=== PATIENT | female | born 1995 | race African-American/Black ===

== ENCOUNTER 2016-08-26 20:04 | Outpatient (CLI) | payer MEDICAID | END 2016-08-26 21:15 | disposition home or self-care (01) | LOC: MW.OBCHECK 20:04 → MW.OB 20:14 → MW.OBCHECK 21:15 | PROVIDERS: ATTEND Obstetrics & Gynecology | DX: O99.89 Other specified diseases and conditions complicating pregnancy, childbirth and the puerperium (principal); N89.8 Other specified noninflammatory disorders of vagina; O99.712 Diseases of the skin and subcutaneous tissue complicating pregnancy, second trimester; L29.8 Other pruritus; Z3A.26 26 weeks gestation of pregnancy ==

== ENCOUNTER 2017-10-19 08:00 | Inpatient (IN) | payer MEDICAID ==
[2017-10-19] MEDS ORDERED: Nalbuphine 10 MG/1 ML Vial IVPUSH PRN (11:06)
[2017-10-19] MEDS ORDERED: Misoprostol 200 MCG Tab PO PRN (11:06)
[2017-10-19] MEDS ORDERED: Sodium Chloride 0.9% 10 ML Syringe FLUSH PRN (11:06)
[2017-10-19] MEDS ORDERED: Methylergonovine 0.2 MG/1 ML Amp IM PRN (11:06)
[2017-10-19] MEDS ORDERED: Tranexamic Acid 1,000 MG in Sodium Chloride 0.9% 100 ML IV PRN (11:06)
[2017-10-19] MEDS ORDERED: Sodium Chloride 0.9% 2.5 ML Syringe FLUSH PRN (11:06)
[2017-10-19] MEDS ORDERED: Carboprost Tromethamine 250 MCG/1 ML Amp IM PRN (11:06)
[2017-10-19] MEDS ORDERED: Water For Irrigation,Sterile 1,000 ML Container IRR PRN (11:06)
[2017-10-19] MEDS ORDERED: Terbutaline 1 MG/ML SDV SUBCUT PRN (11:06)
[2017-10-19] MEDS ORDERED: Ampicillin 2 GM in Sodium Chloride 0.9% 100 ML IV ONE (11:06)
[2017-10-19] MEDS ORDERED: Misoprostol 25 MCG (1/4 of 100 MCG) Tab PO PRN (11:06)
[2017-10-19] MEDS ORDERED: Misoprostol 25 MCG (1/4 of 100 MCG) Tab VAG PRN (11:06)
[2017-10-19] MEDS ORDERED: Lidocaine 1% 50 ML MDV INJECT PRN (11:06)
[2017-10-19] MEDS ORDERED: Oxytocin/0.9 % Sodium Chloride 30 UNIT/500 ML BAG IV SCH ×2 (11:15→18:00)
[2017-10-19] MEDS: Lactated Ringers 1,000 ML IV SCH ×2 (12:08→18:49)
[2017-10-19] MEDS ORDERED: Ampicillin 1 GM AdvVial IV ONE (16:37)
[2017-10-19] MEDS ORDERED: Sodium Chloride 0.9% 50 ML ONE (16:38)
--- NOTE | 2017-10-19 17:23 | PCM.LDHP ---
L&D History of Present Illness - General Date of Service: 10/19/17 Admit Problem/Dx: Patient Status Order with Admit Dx/Problem 10/19/17 11:06 Patient Status [ADT] Routine Admission Diagnosis/Problem Admission Diagnosis/Problem Source of Information: Patient History Limitations: Reports: No Limitations - History of Present Illness Improves with: Reports: None Worsens with: Reports: None Associated Symptoms: Reports: N - Related Data Allergies/Adverse Reactions: Allergies Allergy/AdvReac Type Severity Reaction Status Date / Time adhesive tape Allergy Rash Verified 10/07/17 14:57 bupropion [From Wellbutrin] Allergy Rash Verified 08/26/16 20:50 Home Medications: Home Meds Vit #108/Iron/FA [ One Tablet] 1 each PO DAILY 10/19/17 [ History] Past Medical History Respiratory History: Reports: Asthma 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) Other OB/BYN History: cyst on right breast Psychiatric History: Reports: Anxiety, Bipolar - Past Surgical History HEENT Surgical History: Reports: Oral Surgery Social & Family History - Family History Family Medical History: Noncontributory - Tobacco Use Smoking Status *Q: Never Smoker Second Hand Smoke Exposure: Yes - Recreational Drug Use Recreational Drug Use: Yes Drug Use in Last 12 Months: Yes Recreational Drug Type: Reports: Marijuana/Hashish Recreational Drug Use Frequency: Weekly H&P Review of Systems - Review of Systems: Review Of Systems: See Below General: Reports: No Symptoms HEENT: Reports: No Symptoms Pulmonary: Reports: No Symptoms Cardiovascular: Reports: No Symptoms Gastrointestinal: Reports: No Symptoms Genitourinary: Reports: No Symptoms Musculoskeletal: Reports: No Symptoms Skin: Reports: No Symptoms Psychiatric: Reports: No Symptoms Neurological: Reports: No Symptoms Hematologic/Lymphatic: Reports: No Symptoms Immunologic: Reports: No Symptoms L&D Exam - Exam Exam: See Below - Vital Signs Weight: 116.12 kg - OB Specific Fundal Height In cm: 38 Contraction Intensity: Mild to Moderate Movement: Active Heart Tones: Present Presentation: Vertex - Teran Score Teran Score Cervix Position: Midposition Teran Score Consistency: Soft Teran Score Effacement: 51-70% Teran Score Dilation: 1-2 cm Teran Score Infant's Station: -1 ,0 Teran Score Total: 8 - Exam General: Alert, Oriented HEENT: PERRLA, Conjunctiva Clear, EACs Clear, EOMI, Hearing Intact, Mucosa Moist & [place], Nares Patent, Normal Nasal Septum, Posterior Pharynx Clear, TMs Clear Neck: Supple, Trachea Midline Lungs: Clear to Auscultation, Normal Respiratory Effort Cardiovascular: Regular Rate, Regular Rhythm GI/Abdominal Exam: Normal Bowel Sounds, Soft, Non-Tender, No Organomegaly, No Distention, No Abnormal Bruit, No Mass, Pelvis Stable Rectal Exam: Normal Exam, Normal Rectal Tone Genitourinary: Normal external exam, Normal bimanual exam, Normal speculum exam Back Exam: Normal Inspection, Full Range of Motion Extremities: Normal Inspection, Normal Range of Motion, Non-Tender, No Pedal Edema, Normal Capillary Refill Skin: Warm, Dry, Intact Neurological: Cranial Nerves Intact, Reflexes Equal Bilateral Psychiatric: Alert, Normal Affect, Normal Mood - Patient Data Lab Results Last 24 hrs: Laboratory Results - last 24 hr 10/19/17 10/19/17 Range/Units 11:30 11:30 WBC 7.18 (4.0-11.0) K/uL RBC 4.00 L (4.30-5.90) M/uL Hgb 11.2 L (12.0-16.0) g/dL Hct 33.9 L (36.0-46.0) % MCV 84.8 (80.0-98.0) fL MCH 28.0 (27.0-32.0) pg MCHC 33.0 (31.0-37.0) g/dL RDW Std Deviation 43.0 (28.0-62.0) fl RDW Coeff of Juan 14 (11.0-15.0) % Plt Count 217 (150-400) K/uL MPV 11.80 (7.40-12.00) fL Nucleated RBC % 0.0 /100WBC Nucleated RBCs # 0 K/uL Blood Type O POSITIVE Antibody Screen NEGATIVE Result Diagrams: 10/19/17 11:30 Problem List Initiated/Reviewed/Updated: Yes Orders Last 24hrs: Active Orders 24 hr Category Date Time Status Patient Status [ADT] Routine ADT 10/19/17 11:06 Active Bedrest Bathroom Privileges [RC] ASDIRECTED Care 10/19/17 11:06 Active Communication Order [RC] ASDIRECTED Care 10/19/17 11:06 Active Communication Order [RC] ASDIRECTED Care 10/19/17 11:06 Active Communication Order [RC] ASDIRECTED Care 10/19/17 11:06 Active Heart Tones [RC] CONTINUOUS Care 10/19/17 11:06 Active Non Stress Test [RC] PER UNIT ROUTINE Care 10/19/17 11:06 Active May Shower [RC] ASDIRECTED Care 10/19/17 11:06 Active Notify Provider [RC] PRN Care 10/19/17 11:06 Active Notify Provider [RC] PRN Care 10/19/17 11:06 Active Notify Provider [RC] PRN Care 10/19/17 11:06 Active Notify Provider [RC] STAT Care 10/19/17 11:06 Active Oxygen Therapy [RC] ASDIRECTED Care 10/19/17 11:06 Active Peripheral IV Care [RC] . DIRECTED Care 10/19/17 11:06 Active Up ad Sharon [RC] ASDIRECTED Care 10/19/17 11:06 Active Vaginal Exam [RC] PRN Care 10/19/17 11:06 Active Vaginal Exam [RC] PRN Care 10/19/17 11:06 Active Vital Signs [RC] PER UNIT ROUTINE Care 10/19/17 11:06 Active Vital Signs [RC] PER UNIT ROUTINE Care 10/19/17 11:06 Active Regular Diet [DIET] Diet 10/19/17 Dinner Active Carboprost Tromethamine [Hemabate DS] Med 10/19/17 11:06 Active 250 mcg IM ASDIRECTED PRN Lactated Ringers [Ringers, Lactated] 1,000 ml Med 10/19/17 11:15 Active IV ASDIRECTED Lidocaine 1% [Xylocaine 1%] Med 10/19/17 11:06 Active 50 ml INJECT .ONCE PRN Methylergonovine [Methergine] Med 10/19/17 11:06 Active 0.2 mg IM ASDIRECTED PRN Misoprostol [Cytotec] Med 10/19/17 11:06 Active 200 mcg PO .ONCE PRN Misoprostol [Cytotec] Med 10/19/17 11:06 Active 25 mcg PO Q4H PRN Misoprostol [Cytotec] Med 10/19/17 11:06 Active 25 mcg VAG Q4H PRN Nalbuphine [Nubain] Med 10/19/17 11:06 Active 10 mg IVPUSH Q1H PRN Oxytocin/0.9 % Sodium Chloride [Oxytocin 30 Unit/500 ML Med 10/19/17 11:15 Active -NS] 30 unit in 500 ml IV TITRATE Oxytocin/0.9 % Sodium Chloride [Oxytocin 30 Unit/500 ML Med 10/19/17 18:00 Active -NS] 30 unit in 500 ml IV TITRATE Sodium Chloride 0.9% [Saline Flush] Med 10/19/17 11:06 Active 10 ml FLUSH ASDIRECTED PRN Sodium Chloride 0.9% [Saline Flush] Med 10/19/17 11:06 Active 2.5 ml FLUSH ASDIRECTED PRN Terbutaline [Brethine] Med 10/19/17 11:06 Active 0.25 mg SUBCUT ASDIRECTED PRN Tranexamic Acid [Cyklokapron] 1,000 mg Med 10/19/17 11:06 Active Sodium Chloride 0.9% [Normal Saline] 100 ml IV ONETIME Water For Irrigation,Sterile [Sterile Water for Med 10/19/17 11:06 Active Irrigation] 1,000 ml IRR ASDIRECTED PRN Scalp Electrode [WOMSER] Per Unit Routine Oth 10/19/17 11:06 Ordered Medication Administration Instruction [OM.PC] Q3H Oth 10/19/17 11:15 Ordered Peripheral IV Insertion Adult [OM.PC] Routine Oth 10/19/17 11:06 Ordered Resuscitation Status Routine Resus Stat 10/19/17 11:06 Ordered Medication Orders Carboprost Tromethamine (Hemabate Ds) 250 mcg IM ASDIRECTED PRN PRN Reason: Post Hemorrhage Lactated Ringer's (Ringers, Lactated) 1,000 mls @ 150 mls/hr IV ASDIRECTED LISA Last Admin: 10/19/17 12:08 Dose: 150 mls/hr Oxytocin/Sodium Chloride (Oxytocin 30 Unit/500 Ml-Ns) 30 unit in 500 mls @ 500 mls/hr IV TITRATE LISA Oxytocin/Sodium Chloride (Oxytocin 30 Unit/500 Ml-Ns) 30 unit in 500 mls @ 2 mls/hr IV TITRATE [facility]; Protocol Tranexamic Acid 1,000 mg/ (Sodium Chloride) 110 mls @ 660 mls/hr IV ONETIME PRN PRN Reason: Bleeding Lidocaine HCl (Xylocaine 1%) 50 ml INJECT .ONCE PRN PRN Reason: Laceration repair Methylergonovine Maleate (Methergine) 0.2 mg IM ASDIRECTED PRN PRN Reason: Post Hemorrhage Misoprostol (Cytotec) 200 mcg PO .ONCE PRN PRN Reason: Post Hemorrhage Misoprostol (Cytotec) 25 mcg VAG Q4H PRN PRN Reason: Cervical Ripening Last Admin: 10/19/17 12:09 Dose: 25 mcg Misoprostol (Cytotec) 25 mcg PO Q4H PRN PRN Reason: Cervical Ripening Last Admin: 10/19/17 12:09 Dose: 25 mcg Nalbuphine HCl (Nubain) 10 mg IVPUSH Q1H PRN PRN Reason: Pain (severe 7-10) Sodium Chloride (Saline Flush) 10 ml FLUSH ASDIRECTED PRN PRN Reason: Keep Vein Open Sodium Chloride (Saline Flush) 2.5 ml FLUSH ASDIRECTED PRN PRN Reason: Keep Vein Open Sterile Water (Sterile Water For Irrigation) 1,000 ml IRR ASDIRECTED PRN PRN Reason: delivery Terbutaline Sulfate (Brethine) 0.25 mg SUBCUT ASDIRECTED PRN PRN Reason: Tacysystole Assessment/Plan Comment:: Admit for induction. CX> 3/60/v/-3SROM clear fluid. she may have Epidural if she need it.
[2017-10-19] MEDS ORDERED: Ampicillin 1 GM in Sodium Chloride 0.9% 50 ML IV SCH (17:45)
[2017-10-19] MEDS ORDERED: Bupivacaine 0.25% 10 ML SDV ONE (18:52)
[2017-10-19] MEDS ORDERED: fentaNYL 100 MCG/2 ML SDV ONE (18:54)
--- NOTE | 2017-10-19 19:55 | PCM.PREANE ---
Preanesthetic Assessment - Anesthesia/Transfusion/Family Hx Anesthesia History: Prior Anesthesia Without Reaction Type of Anesthesia Reaction: Other (see below) Other Type of Anesthesia Reaction Comment: Post lumbar discomfort following previous labor epdurals. Family History of Anesthesia Reaction: No Transfusion History: No Prior Transfusion(s) Intubation History: Unknown - Review of Systems General: No Symptoms Pulmonary: No Symptoms Cardiovascular: No Symptoms Gastrointestinal: No Symptoms Neurological: No Symptoms Other: Reports: None - Physical Assessment NPO Status Date: 10/19/17 NPO Status Time: 17:30 Pulse: 88 O2 Sat by Pulse Oximetry: 99 Respiratory Rate: 20 Blood Pressure: 128/64 Height: 1.65 m Weight: 116.12 kg ASA Class: 2 Mental Status: Alert & Oriented x3 Airway Class: Mallampati = 2 Dentition: Reports: Normal Dentition ROM/Head Extension: Full Lungs: Clear to Auscultation Cardiovascular: Regular Rate - Lab Values: Laboratory Last Values WBC 7.18 K/uL (4.0-11.0) 10/19/17 11:30 RBC 4.00 M/uL (4.30-5.90) L 10/19/17 11:30 Hgb 11.2 g/dL (12.0-16.0) L 10/19/17 11:30 Hct 33.9 % (36.0-46.0) L 10/19/17 11:30 MCV 84.8 fL (80.0-98.0) 10/19/17 11:30 MCH 28.0 pg (27.0-32.0) 10/19/17 11:30 MCHC 33.0 g/dL (31.0-37.0) 10/19/17 11:30 RDW Std Deviation 43.0 fl (28.0-62.0) 10/19/17 11:30 RDW Coeff of Juan 14 % (11.0-15.0) 10/19/17 11:30 Plt Count 217 K/uL (150-400) 10/19/17 11:30 MPV 11.80 fL (7.40-12.00) 10/19/17 11:30 Nucleated RBC % 0.0 /100WBC 10/19/17 11:30 Nucleated RBCs # 0 K/uL 10/19/17 11:30 Urine Opiates Screen NEGATIVE (NEGATIVE) 10/19/17 16:15 Ur Oxycodone Screen NEGATIVE (NEGATIVE) 10/19/17 16:15 Urine Methadone Screen NEGATIVE (NEGATIVE) 10/19/17 16:15 Ur Barbiturates Screen NEGATIVE (NEGATIVE) 10/19/17 16:15 Ur Phencyclidine Scrn NEGATIVE (NEGATIVE) 10/19/17 16:15 Ur Amphetamine Screen NEGATIVE (NEGATIVE) 10/19/17 16:15 U Methamphetamines Scrn NEGATIVE (NEGATIVE) 10/19/17 16:15 U Benzodiazepines Scrn NEGATIVE (NEGATIVE) 10/19/17 16:15 U Cocaine Metab Screen NEGATIVE (NEGATIVE) 10/19/17 16:15 U Marijuana (THC) Screen POSITIVE (NEGATIVE) 10/19/17 16:15 Blood Type O POSITIVE 10/19/17 11:30 Antibody Screen NEGATIVE 10/19/17 11:30 - Allergies Allergies/Adverse Reactions: Allergies Allergy/AdvReac Type Severity Reaction Status Date / Time adhesive tape Allergy Rash Verified 10/07/17 14:57 bupropion [From Wellbutrin] Allergy Rash Verified 08/26/16 20:50 - Blood Blood Available: No - Anesthesia Plan Free Text/Narrative:: Requested for labor epidural. Dilated 4 cm, strong contractions. . No contradictions to procedure. Discussed, ? answered, permit signed. 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) Other OB/BYN History: cyst on right breast Psychiatric History: Reports: Anxiety, Bipolar - Past Surgical History HEENT Surgical History: Reports: Oral Surgery - SUBSTANCE USE Smoking Status *Q: Never Smoker Second Hand Smoke Exposure: Yes Recreational Drug Use History: Yes Recreational Drug Type: Reports: Marijuana/Hashish - HOME MEDS Home Medications: Home Meds Vit #108/Iron/FA [ One Tablet] 1 each PO DAILY 10/19/17 [ History] - CURRENT (IN HOUSE) MEDS Current Meds: Current Medications Carboprost Tromethamine (Hemabate Ds) 250 mcg IM ASDIRECTED PRN PRN Reason: Post Hemorrhage Lactated Ringer's (Ringers, Lactated) 1,000 mls @ 150 mls/hr IV ASDIRECTED LISA Last Admin: 10/19/17 12:08 Dose: 150 mls/hr Oxytocin/Sodium Chloride (Oxytocin 30 Unit/500 Ml-Ns) 30 unit in 500 mls @ 500 mls/hr IV TITRATE LISA Oxytocin/Sodium Chloride (Oxytocin 30 Unit/500 Ml-Ns) 30 unit in 500 mls @ 2 mls/hr IV TITRATE [facility]; Protocol Tranexamic Acid 1,000 mg/ (Sodium Chloride) 110 mls @ 660 mls/hr IV ONETIME PRN PRN Reason: Bleeding Ampicillin Sodium 1 gm/ Sodium (Chloride) 50 mls @ 100 mls/hr IV Q6H [facility] Lidocaine HCl (Xylocaine 1%) 50 ml INJECT .ONCE PRN PRN Reason: Laceration repair Methylergonovine Maleate (Methergine) 0.2 mg IM ASDIRECTED PRN PRN Reason: Post Hemorrhage Misoprostol (Cytotec) 200 mcg PO .ONCE PRN PRN Reason: Post Hemorrhage Misoprostol (Cytotec) 25 mcg VAG Q4H PRN PRN Reason: Cervical Ripening Last Admin: 10/19/17 12:09 Dose: 25 mcg Misoprostol (Cytotec) 25 mcg PO Q4H PRN PRN Reason: Cervical Ripening Last Admin: 10/19/17 12:09 Dose: 25 mcg Nalbuphine HCl (Nubain) 10 mg IVPUSH Q1H PRN PRN Reason: Pain (severe 7-10) Sodium Chloride (Saline Flush) 10 ml FLUSH ASDIRECTED PRN PRN Reason: Keep Vein Open Sodium Chloride (Saline Flush) 2.5 ml FLUSH ASDIRECTED PRN PRN Reason: Keep Vein Open Sterile Water (Sterile Water For Irrigation) 1,000 ml IRR ASDIRECTED PRN PRN Reason: delivery Terbutaline Sulfate (Brethine) 0.25 mg SUBCUT ASDIRECTED PRN PRN Reason: Tacysystole Discontinued Medications Ampicillin Sodium (Ampicillin) Confirm Administered Dose 1 gm IV .STK-MED ONE Stop: 10/19/17 16:38 Bupivacaine HCl (Sensorcaine-Mpf 0.25%) Confirm Administered Dose 10 ml .ROUTE .STK-MED ONE Stop: 10/19/17 18:53 Fentanyl (Sublimaze) Confirm Administered Dose 100 mcg .ROUTE .STK-MED ONE Stop: 10/19/17 18:55 Ampicillin Sodium 2 gm/ Sodium (Chloride) 100 mls @ 200 mls/hr IV ONETIME ONE Stop: 10/19/17 11:35 Last Admin: 10/19/17 12:09 Dose: 200 mls/hr Sodium Chloride (Normal Saline) Confirm Administered Dose 50 mls @ as directed .ROUTE .STK-MED ONE Stop: 10/19/17 16:39 Fentanyl/Bupivacaine HCl ([id number]-Cfmry-Xk 2 Mcg/Ml-0.125%) Confirm Administered Dose 100 mls @ as directed EP .STK-MED ONE Stop: 10/19/17 18:55
--- NOTE | 2017-10-19 19:57 | PCM.PREANE ---
Preanesthetic Assessment - Anesthesia/Transfusion/Family Hx Anesthesia History: Prior Anesthesia Without Reaction Other Type of Anesthesia Reaction Comment: Post lumbar discomfort following previous labor epdurals. Family History of Anesthesia Reaction: No Transfusion History: No Prior Transfusion(s) Intubation History: Unknown - Review of Systems General: No Symptoms Pulmonary: No Symptoms Cardiovascular: No Symptoms Gastrointestinal: No Symptoms Neurological: No Symptoms Other: Reports: None - Physical Assessment NPO Status Date: 10/19/17 NPO Status Time: 17:30 Pulse: 88 O2 Sat by Pulse Oximetry: 99 Respiratory Rate: 20 Blood Pressure: 128/64 Vital Signs: Last Vital Signs Temp Pulse 88 10/19/17 19:55 Resp 20 10/19/17 19:55 BP 128/64 10/19/17 19:55 Pulse Ox 99 10/19/17 19:55 Height: 1.65 m Weight: 116.12 kg - Lab Values: Laboratory Last Values WBC 7.18 K/uL (4.0-11.0) 10/19/17 11:30 RBC 4.00 M/uL (4.30-5.90) L 10/19/17 11:30 Hgb 11.2 g/dL (12.0-16.0) L 10/19/17 11:30 Hct 33.9 % (36.0-46.0) L 10/19/17 11:30 MCV 84.8 fL (80.0-98.0) 10/19/17 11:30 MCH 28.0 pg (27.0-32.0) 10/19/17 11:30 MCHC 33.0 g/dL (31.0-37.0) 10/19/17 11:30 RDW Std Deviation 43.0 fl (28.0-62.0) 10/19/17 11:30 RDW Coeff of Juan 14 % (11.0-15.0) 10/19/17 11:30 Plt Count 217 K/uL (150-400) 10/19/17 11:30 MPV 11.80 fL (7.40-12.00) 10/19/17 11:30 Nucleated RBC % 0.0 /100WBC 10/19/17 11:30 Nucleated RBCs # 0 K/uL 10/19/17 11:30 Urine Opiates Screen NEGATIVE (NEGATIVE) 10/19/17 16:15 Ur Oxycodone Screen NEGATIVE (NEGATIVE) 10/19/17 16:15 Urine Methadone Screen NEGATIVE (NEGATIVE) 10/19/17 16:15 Ur Barbiturates Screen NEGATIVE (NEGATIVE) 10/19/17 16:15 Ur Phencyclidine Scrn NEGATIVE (NEGATIVE) 10/19/17 16:15 Ur Amphetamine Screen NEGATIVE (NEGATIVE) 10/19/17 16:15 U Methamphetamines Scrn NEGATIVE (NEGATIVE) 10/19/17 16:15 U Benzodiazepines Scrn NEGATIVE (NEGATIVE) 10/19/17 16:15 U Cocaine Metab Screen NEGATIVE (NEGATIVE) 10/19/17 16:15 U Marijuana (THC) Screen POSITIVE (NEGATIVE) 10/19/17 16:15 Blood Type O POSITIVE 10/19/17 11:30 Antibody Screen NEGATIVE 10/19/17 11:30 - Allergies Allergies/Adverse Reactions: Allergies Allergy/AdvReac Type Severity Reaction Status Date / Time adhesive tape Allergy Rash Verified 10/07/17 14:57 bupropion [From Wellbutrin] Allergy Rash Verified 08/26/16 20:50 - Blood Blood Available: No PreAnesthesia Questionnaire Respiratory History: Reports: 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) Other OB/BYN History: cyst on right breast Psychiatric History: Reports: Anxiety, Bipolar - Past Surgical History HEENT Surgical History: Reports: Oral Surgery - SUBSTANCE USE Smoking Status *Q: Never Smoker Second Hand Smoke Exposure: Yes Recreational Drug Use History: Yes Recreational Drug Type: Reports: Marijuana/Hashish - HOME MEDS Home Medications: Home Meds Vit #108/Iron/FA [ One Tablet] 1 each PO DAILY 10/19/17 [ History] - CURRENT (IN HOUSE) MEDS Current Meds: Current Medications Carboprost Tromethamine (Hemabate Ds) 250 mcg IM ASDIRECTED PRN PRN Reason: Post Hemorrhage Lactated Ringer's (Ringers, Lactated) 1,000 mls @ 150 mls/hr IV ASDIRECTED LISA Last Admin: 10/19/17 18:49 Dose: 150 mls/hr Oxytocin/Sodium Chloride (Oxytocin 30 Unit/500 Ml-Ns) 30 unit in 500 mls @ 500 mls/hr IV TITRATE L[facility] Oxytocin/Sodium Chloride (Oxytocin 30 Unit/500 Ml-Ns) 30 unit in 500 mls @ 2 mls/hr IV TITRATE [facility]; Protocol Tranexamic Acid 1,000 mg/ (Sodium Chloride) 110 mls @ 660 mls/hr IV ONETIME PRN PRN Reason: Bleeding Ampicillin Sodium 1 gm/ Sodium (Chloride) 50 mls @ 100 mls/hr IV Q6H [facility] Last Admin: 10/19/17 16:45 Dose: 100 mls/hr Lidocaine HCl (Xylocaine 1%) 50 ml INJECT .ONCE PRN PRN Reason: Laceration repair Methylergonovine Maleate (Methergine) 0.2 mg IM ASDIRECTED PRN PRN Reason: Post Hemorrhage Misoprostol (Cytotec) 200 mcg PO .ONCE PRN PRN Reason: Post Hemorrhage Misoprostol (Cytotec) 25 mcg VAG Q4H PRN PRN Reason: Cervical Ripening Last Admin: 10/19/17 12:09 Dose: 25 mcg Misoprostol (Cytotec) 25 mcg PO Q4H PRN PRN Reason: Cervical Ripening Last Admin: 10/19/17 12:09 Dose: 25 mcg Nalbuphine HCl (Nubain) 10 mg IVPUSH Q1H PRN PRN Reason: Pain (severe 7-10) Sodium Chloride (Saline Flush) 10 ml FLUSH ASDIRECTED PRN PRN Reason: Keep Vein Open Sodium Chloride (Saline Flush) 2.5 ml FLUSH ASDIRECTED PRN PRN Reason: Keep Vein Open Sterile Water (Sterile Water For Irrigation) 1,000 ml IRR ASDIRECTED PRN PRN Reason: delivery Terbutaline Sulfate (Brethine) 0.25 mg SUBCUT ASDIRECTED PRN PRN Reason: Tacysystole Discontinued Medications Ampicillin Sodium (Ampicillin) Confirm Administered Dose 1 gm IV .STK-MED ONE Stop: 10/19/17 16:38 Last Admin: 10/19/17 19:49 Dose: Not Given Bupivacaine HCl (Sensorcaine-Mpf 0.25%) Confirm Administered Dose 10 ml .ROUTE .STK-MED ONE Stop: 10/19/17 18:53 Fentanyl (Sublimaze) Confirm Administered Dose 100 mcg .ROUTE .STK-MED ONE Stop: 10/19/17 18:55 Ampicillin Sodium 2 gm/ Sodium (Chloride) 100 mls @ 200 mls/hr IV ONETIME ONE Stop: 10/19/17 11:35 Last Admin: 10/19/17 12:09 Dose: 200 mls/hr Sodium Chloride (Normal Saline) Confirm Administered Dose 50 mls @ as directed .ROUTE .STK-MED ONE Stop: 10/19/17 16:39 Fentanyl/Bupivacaine HCl ([id number]-Yyyec-Sz 2 Mcg/Ml-0.125%) Confirm Administered Dose 100 mls @ as directed EP .STK-MED ONE Stop: 10/19/17 18:55
[2017-10-19] MEDS ORDERED: Docusate Sodium 100 MG Cap PO PRN (20:05)
[2017-10-19] MEDS ORDERED: Witch Hazel Medicated Pads 40/Jar TOP PRN (20:05)
[2017-10-19] MEDS ORDERED: Ibuprofen 400 MG Tab PO PRN (20:05)
[2017-10-19] MEDS ORDERED: Benzocaine/Menthol 20%-0.5% Spray 78 GM Cannister TOP PRN (20:05)
[2017-10-19] MEDS ORDERED: Acetaminophen 500 MG Tab PO PRN (20:05)
[2017-10-19] MEDS ORDERED: Bisacodyl 10 MG Supp RECTAL PRN (20:05)
[2017-10-19] MEDS ORDERED: Lanolin 100% Cream 7 GM Tube TOP PRN (20:05)
--- NOTE | 2017-10-19 20:09 | PCM.PRNOTE ---
- Free Text/Narrative Note: Continueous lumbar epidural per patient request. Preformed sitting under sterile technique via ÁNGEL with 0.09% sodium chloride. Catheter to 9cm. Test dose negative. Bolus given 6 ml 0.25% marcaine + 100 mcg Fentanyl. Occlusive dressing. Tolerated without issues. Significant decrease in pain within 10 minutes. Refer to anesthesia record.
--- NOTE | 2017-10-19 20:27 | PCM.POSTAN ---
POST ANESTHESIA ASSESSMENT - MENTAL STATUS Mental Status: Alert - VITAL SIGNS Pulse Rate: 84 SaO2: 99 Resp Rate: 20 Blood Pressure: 129/65 - RESPIRATORY Respiratory Status: Respiratory Rate WNL - CARDIOVASCULAR CV Status: Pulse Rate WNL - GASTROINTESTINAL GI Status: No Symptoms - PAIN Pain Score: 0 (Epidural) - POST OP HYDRATION Hydration Status: Adequate & Stable - OBSERVATIONS Free Text/Narrative:: Delivered @ 20:00
--- NOTE | 2017-10-19 20:57 | OR ---
SURGEON: Kirill Villeda MD DATE OF PROCEDURE: 10/19/2017 Ms. Conteh is a 22-year-old, she is para 3-0-0-3. She is admitted for elective induction. She is 39 weeks plus. At the time of admission, she had mild contraction and she was dilated to 3, 60% vertex with bulging bag of water. She had an artificial rupture of the membrane, was clear fluid. The patient started martha regularly. She had epidural anesthesia for labor analgesia. She progressed rather fast without any problem. She became complete and then she was able to accomplish normal spontaneous vaginal delivery of a female fetus. score reported to be 8 and 9. The weight is not available, and there was no need for episiotomy. There was no perineal or labial laceration. The placenta delivered spontaneous, complete, and intact. Estimated blood loss in this labor is 250 to 300 mL. heart rate was category 1 through the entire process of labor. There was no complication in this Labor and Delivery. It was mentioning now that the patient is a GBS positive and prior to rupture of membrane, she had two doses of IV antibiotic. ALICIA / SHARMIN /[id number]
[2017-10-19] MEDS: Ibuprofen 800 MG Tab PO PRN (23:11)
[2017-10-20] MEDS: oxyCODONE 5 MG Tab PO PRN ×2 (05:16→14:28)
[2017-10-20] MEDS: Acetaminophen 500 MG Tab PO PRN ×2 (05:17→14:28)
--- NOTE | 2017-10-20 09:41 | PCM.PNPP ---
- General Info Date of Service: 10/20/17 Functional Status: Reports: Pain Controlled - Review of Systems General: Reports: No Symptoms HEENT: Reports: No Symptoms Pulmonary: Reports: No Symptoms Cardiovascular: Reports: No Symptoms Gastrointestinal: Reports: No Symptoms Genitourinary: Reports: No Symptoms Musculoskeletal: Reports: No Symptoms Skin: Reports: No Symptoms Neurological: Reports: No Symptoms Psychiatric: Reports: No Symptoms - General Info Date of Service: 10/20/17 - Patient Data Vital Signs - Most Recent: Last Vital Signs Temp 36.4 C 10/20/17 07:49 Pulse 65 10/20/17 07:49 Resp 16 10/20/17 07:49 BP 107/57 L 10/20/17 07:49 Pulse Ox 96 10/20/17 07:49 Weight - Most Recent: 116.12 kg Lab Results - Last 24 Hours: Laboratory Results - last 24 hr 10/19/17 10/19/17 10/19/17 Range/Units 11:30 11:30 16:15 WBC 7.18 (4.0-11.0) K/uL RBC 4.00 L (4.30-5.90) M/uL Hgb 11.2 L (12.0-16.0) g/dL Hct 33.9 L (36.0-46.0) % MCV 84.8 (80.0-98.0) fL MCH 28.0 (27.0-32.0) pg MCHC 33.0 (31.0-37.0) g/dL RDW Std Deviation 43.0 (28.0-62.0) fl RDW Coeff of Juan 14 (11.0-15.0) % Plt Count 217 (150-400) K/uL MPV 11.80 (7.40-12.00) fL Nucleated RBC % 0.0 /100WBC Nucleated RBCs # 0 K/uL Urine Opiates Screen NEGATIVE (NEGATIVE) Ur Oxycodone Screen NEGATIVE (NEGATIVE) Urine Methadone Screen NEGATIVE (NEGATIVE) Ur Barbiturates Screen NEGATIVE (NEGATIVE) Ur Phencyclidine Scrn NEGATIVE (NEGATIVE) Ur Amphetamine Screen NEGATIVE (NEGATIVE) U Methamphetamines Scrn NEGATIVE (NEGATIVE) U Benzodiazepines Scrn NEGATIVE (NEGATIVE) U Cocaine Metab Screen NEGATIVE (NEGATIVE) U Marijuana (THC) Screen POSITIVE (NEGATIVE) Blood Type O POSITIVE Antibody Screen NEGATIVE 10/20/17 Range/Units 05:34 WBC (4.0-11.0) K/uL RBC (4.30-5.90) M/uL Hgb 10.6 L (12.0-16.0) g/dL Hct 33.1 L (36.0-46.0) % MCV (80.0-98.0) fL MCH (27.0-32.0) pg MCHC (31.0-37.0) g/dL RDW Std Deviation (28.0-62.0) fl RDW Coeff of Juan (11.0-15.0) % Plt Count (150-400) K/uL MPV (7.40-12.00) fL Nucleated RBC % /100WBC Nucleated RBCs # K/uL Urine Opiates Screen (NEGATIVE) Ur Oxycodone Screen (NEGATIVE) Urine Methadone Screen (NEGATIVE) Ur Barbiturates Screen (NEGATIVE) Ur Phencyclidine Scrn (NEGATIVE) Ur Amphetamine Screen (NEGATIVE) U Methamphetamines Scrn (NEGATIVE) U Benzodiazepines Scrn (NEGATIVE) U Cocaine Metab Screen (NEGATIVE) U Marijuana (THC) Screen (NEGATIVE) Blood Type Antibody Screen Med Orders - Current: Current Medications Acetaminophen (Tylenol Extra Strength) 500 mg PO Q4H PRN PRN Reason: Pain Last Admin: 10/20/17 05:17 Dose: 500 mg Acetaminophen (Tylenol Extra Strength) 1,000 mg PO Q4H PRN PRN Reason: Pain Benzocaine/Menthol (Dermoplast Pain Relief 20%-0.5% [place]) 78 gm TOP ASDIRECTED PRN PRN Reason: Perineal Comfort Measure Last Admin: 10/19/17 23:12 Dose: 1 spray Bisacodyl (Dulcolax) 10 mg RECTAL .ONCE PRN PRN Reason: Constipation Carboprost Tromethamine (Hemabate Ds) 250 mcg IM ASDIRECTED PRN PRN Reason: Post Hemorrhage Docusate Sodium (Colace) 100 mg PO BID PRN PRN Reason: Constipation Emollient Ointment (Lansinoh Hpa) 0 gm TOP ASDIRECTED PRN PRN Reason: Sore Nipples Last Admin: 10/19/17 23:11 Dose: 1 applic Lactated Ringer's (Ringers, Lactated) 1,000 mls @ 150 mls/hr IV ASDIRECTED LISA Last Admin: 10/19/17 18:49 Dose: 150 mls/hr Oxytocin/Sodium Chloride (Oxytocin 30 Unit/500 Ml-Ns) 30 unit in 500 mls @ 500 mls/hr IV TITRATE [facility] Last Admin: 10/19/17 20:05 Dose: 500 mls/hr Oxytocin/Sodium Chloride (Oxytocin 30 Unit/500 Ml-Ns) 30 unit in 500 mls @ 2 mls/hr IV TITRATE [facility]; Protocol Tranexamic Acid 1,000 mg/ (Sodium Chloride) 110 mls @ 660 mls/hr IV ONETIME PRN PRN Reason: Bleeding Ampicillin Sodium 1 gm/ Sodium (Chloride) 50 mls @ 100 mls/hr IV Q6H [facility] Last Admin: 10/19/17 16:45 Dose: 100 mls/hr Ibuprofen (Motrin) 400 mg PO Q4H PRN PRN Reason: Pain Ibuprofen (Motrin) 800 mg PO Q6H PRN PRN Reason: Pain Last Admin: 10/19/17 23:11 Dose: 800 mg Lidocaine HCl (Xylocaine 1%) 50 ml INJECT .ONCE PRN PRN Reason: Laceration repair Methylergonovine Maleate (Methergine) 0.2 mg IM ASDIRECTED PRN PRN Reason: Post Hemorrhage Misoprostol (Cytotec) 200 mcg PO .ONCE PRN PRN Reason: Post Hemorrhage Misoprostol (Cytotec) 25 mcg VAG Q4H PRN PRN Reason: Cervical Ripening Last Admin: 10/19/17 12:09 Dose: 25 mcg Misoprostol (Cytotec) 25 mcg PO Q4H PRN PRN Reason: Cervical Ripening Last Admin: 10/19/17 12:09 Dose: 25 mcg Nalbuphine HCl (Nubain) 10 mg IVPUSH Q1H PRN PRN Reason: Pain (severe 7-10) Oxycodone HCl (Oxycodone) 5 mg PO Q2H PRN PRN Reason: Pain Last Admin: 10/20/17 05:16 Dose: 5 mg Sodium Chloride (Saline Flush) 10 ml FLUSH ASDIRECTED PRN PRN Reason: Keep Vein Open Sodium Chloride (Saline Flush) 2.5 ml FLUSH ASDIRECTED PRN PRN Reason: Keep Vein Open Sterile Water (Sterile Water For Irrigation) 1,000 ml IRR ASDIRECTED PRN PRN Reason: delivery Terbutaline Sulfate (Brethine) 0.25 mg SUBCUT ASDIRECTED PRN PRN Reason: Tacysystole Witvenkat Neha (Tucks) 1 pad TOP ASDIRECTED PRN PRN Reason: comfort care Discontinued Medications Ampicillin Sodium (Ampicillin) Confirm Administered Dose 1 gm IV .STK-MED ONE Stop: 10/19/17 16:38 Last Admin: 10/19/17 19:49 Dose: Not Given Bupivacaine HCl (Sensorcaine-Mpf 0.25%) Confirm Administered Dose 10 ml .ROUTE .STK-MED ONE Stop: 10/19/17 18:53 Fentanyl (Sublimaze) Confirm Administered Dose 100 mcg .ROUTE .STK-MED ONE Stop: 10/19/17 18:55 Ampicillin Sodium 2 gm/ Sodium (Chloride) 100 mls @ 200 mls/hr IV ONETIME ONE Stop: 10/19/17 11:35 Last Admin: 10/19/17 12:09 Dose: 200 mls/hr Sodium Chloride (Normal Saline) Confirm Administered Dose 50 mls @ as directed .ROUTE .STK-MED ONE Stop: 10/19/17 16:39 Fentanyl/Bupivacaine HCl ([id number] 2 Mcg/Ml-0.125%) Confirm Administered Dose 100 mls @ as directed EP .STK-MED ONE Stop: 10/19/17 18:55 - Interaction Infant Disposition, : [place] in Room with Family Interaction: Holding Feeding: Attempted ; Nursed Fair/Poor Support Person: Significant Other - Recovery Exam Fundal Tone: Firm Fundal Level: At Umbilicus Fundal Placement: Midline Lochia Amount: Small Lochia Color: Rubra/Red Perineum Description: Intact, Minimal Bruising/Swelling Episiotomy/Laceration: None Bladder Status: Voiding - Exam General: Alert, Oriented HEENT: Pupils Equal Neck: Supple Lungs: Clear to Auscultation, Normal Respiratory Effort Cardiovascular: Regular Rate, Regular Rhythm GI/Abdominal Exam: Normal Bowel Sounds, Soft, Non-Tender, No Organomegaly, No Distention, No Abnormal Bruit, No Mass, Pelvis Stable Extremities: Normal Inspection, Normal Range of Motion, Non-Tender, No Pedal Edema, Normal Capillary Refill Skin: Warm, Dry, Intact Wound/Incisions: Healing Well Neurological: No New Focal Deficit Psy/Mental Status: Alert, Normal Affect, Normal Mood - Problem List Review Problem List Initiated/Reviewed/Updated: Yes - My Orders Last 24 Hours: My Active Orders 10/19/17 20:05 Patient Status [ADT] Routine May Shower [RC] ASDIRECTED Up ad Sharon [RC] ASDIRECTED Vital Signs [RC] PER UNIT ROUTINE Acetaminophen [Tylenol Extra Strength] 1,000 mg PO Q4H PRN Acetaminophen [Tylenol Extra Strength] 500 mg PO Q4H PRN Benzocaine/Menthol [Dermoplast Pain Relief 20%-0.5% [place]] 78 gm TOP ASDIRECTED PRN Bisacodyl [Dulcolax] 10 mg RECTAL .ONCE PRN Docusate Sodium [Colace] 100 mg PO BID PRN Ibuprofen [Motrin] 400 mg PO Q4H PRN Ibuprofen [Motrin] 800 mg PO Q6H PRN Lanolin [Lansinoh HPA] See Dose Instructions TOP ASDIRECTED PRN Witch Neha [Tucks] 1 pad TOP ASDIRECTED PRN oxyCODONE 5 mg PO Q2H PRN Assess Lochia [WOMSER] Per Unit Routine Assess Uterine Involution [WOMSER] Per Unit Routine Peripheral IV Discontinue [OM.PC] Routine - Assessment Assessment:: doing wee. send home this evening. - Plan Plan:: Admit for induction. CX> 3/60/v/-3SROM clear fluid. she may have Epidural if she need it.
--- NOTE | 2017-10-20 10:31 | PCM48HPAN ---
Post Anesthesia Note - EVALUATION WITHIN 48HRS OF ANESTHETIC Vital Signs in Normal Range: Yes Patient Participated in Evaluation: Yes Respiratory Function Stable: Yes Airway Patent: Yes Cardiovascular Function Stable: Yes Hydration Status Stable: Yes Pain Control Satisfactory: Yes Nausea and Vomiting Control Satisfactory: Yes Mental Status Recovered: Yes Pulse Rate: 84 Resp Rate: 16 Blood Pressure: 129/65 - COMMENTS/OBSERVATIONS Free Text/Narrative:: Doing well post. No problems noted.
[2017-10-20] MEDS: Ibuprofen 800 MG Tab PO PRN (10:46)
[2017-10-20 23:13] VITALS: BP 125/78
== END 2017-10-20 22:25 | disposition home or self-care (01) | DRG 775 ==
LOC: MW.OB 10:47 → INTOOBSV 10:47 → OBSVTOIN 20:00 → MW.OB 20:00
PROVIDERS: ADMIT Obstetrics & Gynecology; ATTEND Obstetrics & Gynecology
PROC: 10E0XZZ Delivery of Products of Conception, External Approach (ICD-10-PCS; principal; 2017-10-19)
PROC: 10907ZC Drainage of Amniotic Fluid, Therapeutic from Products of Conception, Via Natural or Artificial Opening (ICD-10-PCS; 2017-10-19)
DX: O80 Encounter for full-term uncomplicated delivery (principal); Z3A.39 39 weeks gestation of pregnancy; Z37.0 Single live birth
CPT/HCPCS: 36415; 59025; 59409; 80305; 85014; 85018; 85027; 86850; 86900; 86901; A9270-GY; J0290; J2590; J7030; J7050; J7120